=== PATIENT | male | born 1945 | race Caucasian/White ===

== ENCOUNTER → 2019-12-03 | Day surgery (SDC) | payer OTHER ==
[~2019-12-03] VITALS: Ht 177.8 cm; Wt 70.3 kg
[~2019-12-03] MED LIST: BACITRACIN INJ 50000 UNIT VIAL ONE; BUPIVACAINE 0.25% INJ 50ML VIAL ONE; FENO145T27 PO; IBUP800T24 PO; LIDOCAINE W/ EPINEPHRINE 1 % INJ 30ML ONE; PROPOFOL 10 MG/ML 20 ML IV ONE; ceFAZolin 1GM/50ML 100 ML IV ONE; ePHEDrine SULFATE 50 MG/ML AMP IV PRN; fentaNYL CITRATE 100 MCG/2 ML VL IV ONE; fentaNYL CITRATE 100 MCG/2 ML VL IV PRN; fentaNYL CITRATE 100 MCG/2 ML VL ONE; hydrALAZINE HCL 20 MG/ML VL IV PRN
[2019-12-03 12:25] VITALS: BP 153/85
== END | disposition home or self-care (01) ==
LOC: SUR 08:12
PROVIDERS: ATTEND Surgery
DX: K40.90 Unilateral inguinal hernia, without obstruction or gangrene, not specified as recurrent (principal); I26.99 Other pulmonary embolism without acute cor pulmonale; Z88.8 Allergy status to other drugs, medicaments and biological substances; Z86.718 Personal history of other venous thrombosis and embolism; Z85.46 Personal history of malignant neoplasm of prostate; Z90.79 Acquired absence of other genital organ(s); Z11.59 Encounter for screening for other viral diseases
CPT/HCPCS: 49505; C1781; J0690; J2001; J2704; J3010; J3490; U0003